=== PATIENT | male | born 1940 | race Hispanic/Latino ===

== ENCOUNTER 2017-04-28 07:03 | Day surgery (SDC) | payer MEDICARE ==
[2017-04-20 10:15] VITALS: BMI 26.4
[2017-04-28 07:32] VITALS: RESP 16; O2SAT 100
[2017-04-28] MEDS ORDERED: Propofol 10 mg/ml Inj (20 ML) ONE (09:04)
[2017-04-28] MEDS ORDERED: Lactated Ringer's 1,000 ML IV SCH (09:45)
[2017-04-28 10:12] VITALS: TEMP 98
[2017-04-28 10:17] VITALS: PULSE 54
[2017-04-28 14:26] VITALS: BP 135/64
== END 2017-04-28 11:22 | disposition home or self-care (01) ==
LOC: ENDO 07:03
PROVIDERS: ATTEND Internal Medicine Gastroenterology
DX: K57.10 Diverticulosis of small intestine without perforation or abscess without bleeding (principal); K29.50 Unspecified chronic gastritis without bleeding; K57.30 Diverticulosis of large intestine without perforation or abscess without bleeding; K21.9 Gastro-esophageal reflux disease without esophagitis; K64.8 Other hemorrhoids; K63.89 Other specified diseases of intestine; K59.00 Constipation, unspecified; R10.13 Epigastric pain
CPT/HCPCS: 43239; 45378; 88305; 88312; 88342; J2001; J2704; J3010; J7040; J7120

== ENCOUNTER 2018-08-02 10:06 | Day surgery (SDC) | payer MEDICARE ==
[2018-07-29 14:16] VITALS: BMI 27.1
[2018-08-02] MEDS ORDERED: Propofol 10 mg/ml Inj (20 ML) ONE (13:00)
[2018-08-02] MEDS ORDERED: Etomidate 20 mg/10ml Inj IV ONE (13:12)
[2018-08-02] MEDS ORDERED: Phenylephrine 10 mg/ml Inj ONE (13:31)
[2018-08-02] MEDS ORDERED: Sodium Chloride 0.9% 1,000 ML IV SCH (14:00)
[2018-08-02 17:11] VITALS: BP 153/60; PULSE 66; RESP 18; TEMP 97.7; O2SAT 100
== END 2018-08-02 15:45 | disposition home or self-care (01) ==
LOC: ENDO 10:06
PROVIDERS: ATTEND Internal Medicine Gastroenterology
DX: K21.9 Gastro-esophageal reflux disease without esophagitis (principal); K59.00 Constipation, unspecified; K57.30 Diverticulosis of large intestine without perforation or abscess without bleeding; Q43.8 Other specified congenital malformations of intestine; K64.8 Other hemorrhoids; K22.70 Barrett's esophagus without dysplasia; K29.50 Unspecified chronic gastritis without bleeding; K25.9 Gastric ulcer, unspecified as acute or chronic, without hemorrhage or perforation; K26.9 Duodenal ulcer, unspecified as acute or chronic, without hemorrhage or perforation; H40.9 Unspecified glaucoma; R73.03 Prediabetes; Z80.42 Family history of malignant neoplasm of prostate
CPT/HCPCS: 43239; 45378; 88305; 88312; 88342; J2001; J2370; J2704; J3010; J7030; J7040

== ENCOUNTER 2018-10-08 09:48 | Day surgery (SDC) | payer MEDICARE ==
[2018-09-29 10:40] VITALS: BMI 27.6
[2018-10-08] MEDS ORDERED: Propofol 10 mg/ml Inj (20 ML) ONE (11:55)
[2018-10-08] MEDS ORDERED: Sodium Chloride 0.9% 1,000 ML IV SCH (12:30)
[2018-10-08 14:18] VITALS: BP 134/69; RESP 16; TEMP 97.9
[2018-10-08 14:19] VITALS: PULSE 61; O2SAT 99
== END 2018-10-08 13:59 | disposition home or self-care (01) ==
LOC: ENDO 09:48
PROVIDERS: ATTEND Internal Medicine Gastroenterology
DX: K25.9 Gastric ulcer, unspecified as acute or chronic, without hemorrhage or perforation (principal); K29.50 Unspecified chronic gastritis without bleeding; K31.7 Polyp of stomach and duodenum; K21.9 Gastro-esophageal reflux disease without esophagitis